=== PATIENT | female | born 1985 | race Two or more races ===

== ENCOUNTER 2024-07-06 08:41 | Emergency (ER) | payer OTHER, SELFPAY ==
[2024-07-06 08:54] VITALS: BP 131/94; PULSE 90; RESP 16; TEMP 36.7; O2SAT 98; BMI 32.5
--- NOTE | 2024-07-06 09:10 | EDNOTE_ITS ---
<Statement entered by Freida Tolliver MD - 07/06/24 16:22> As co-signing physician, I was present and available for consult prn. I concur with the plan and care as documented by the midlevel provider. 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 definitely poked her right index finger with a needle today Limitations: no limitations Related Data Home Medications ?Medication ?Instructions ?Recorded ?Confirmed ergocalciferol (vitamin D2) 1,250 1,250 mcg PO QWEEK 01/05/23 01/05/23 mcg (50,000 unit) capsule (Vitamin D2) multivitamin 1 tab PO QDAY 01/05/23 01/05/23 Previous Rx's ?Medication ?Instructions ?Recorded docusate sodium 100 mg capsule 100 mg PO BID #40 caps 01/06/23 (Colace) hydrocodone 5 mg-acetaminophen 325 1 tab PO Q6H PRN pain (scale score 01/06/23 mg tablet 7-10) #20 tabs ibuprofen 600 mg tablet 600 mg PO Q8H PRN pain (scale 01/06/23 score 4-6) #15 tabs emtricitabine 200 mg-tenofovir 1 tab PO QAM #28 tabs 07/06/24 disoproxil fumarate 300 mg tablet raltegravir 400 mg tablet 400 mg PO BID 28 days #56 tabs 07/06/24 Allergies Allergy/AdvReac Type Severity Reaction Status Date / Time No Known Allergies Allergy Verified 01/06/23 09:27 Review of Systems Review of Systems Systems Reviewed: All systems reviewed, normal except as documented Constitutional Constitutional: Reports system reviewed and no additional complaints, except as documented, Denies fever(s) and Denies headache(s) Eyes Eyes: Reports system reviewed and no additional complaints, except as documented and Denies blurry vision ENT Ears, Nose, Mouth, and Throat: Reports system reviewed and no additional complaints, except as documented, Denies headache(s), Denies nasal congestion and Denies nasal discharge Cardiovascular Cardiovascular: Reports system reviewed and no additional complaints, except as documented, Denies chest pain and Denies dyspnea Respiratory Respiratory: Reports system reviewed and no additional complaints, except as documented, Denies chest congestion, Denies cough and Denies dyspnea Gastrointestinal Gastrointestinal: Reports system reviewed and no additional complaints, except as documented and Denies abdominal pain Integumentary/Breasts Skin/Breast: Reports system reviewed and no additional complaints, except as documented, Denies rash and Reports wounds (Right index finger puncture wound) Neurologic Neurologic: Reports system reviewed and no additional complaints, except as documented, Reports as per HPI and Denies headache(s) Past Medical History Past Medical History NEUROLOGIC: Negative Neurological Disorders or Seizures CARDIAC: Negative Cardiac Disorders or Congestive Heart Failure RESPIRATORY: Negative Chronic Obstructive Pulmonary Disease (COPD) GASTROINTESTINAL: Positive Gastrointestinal Disorders, Gall Bladder Disease and Obesity; Negative Hepatitis GENITOURINARY: Negative Genitourinary Disorders or Renal Disease REPRODUCTIVE: Positive Previous Pregnancies; Negative Pelvic Inflammatory Disease MUSCULOSKELETAL: Negative Musculoskeletal Disorders ENDOCRINE: Negative Endocrine Disorders, Diabetes Mellitus Type 1 or Diabetes Mellitus Type 2 HEMATOLOGIC: Negative Blood Disorders OTHER HISTORY: Positive Anesthesia Reactions (nausea); Negative Autoimmune Disease, Blood Transfusions, Blood Transfusion Reaction, MRSA, Measles or Cancer Family History FAMILY HISTORY: Positive Family Surgery (MOTHER: HYSTERECTOMY); Negative Family Psychiatric Problems, Family Respiratory Disorders, Family Cardiac Disorders, Family Gastrointestinal Problems, Family Cancer or Family Anesthesia Reaction Surgical History SURGICAL: Positive Section Social History SMOKING STATUS: Never smoker SUBSTANCE USE: does not use ED Exam General Limitations: Present no limitations General appearance: Present alert and in no apparent distress Head Head exam: Present atraumatic Eye Eye exam: Present normal appearance, PERRL and EOMI ENT ENT exam: Present normal exam, normal oropharynx and mucous membranes moist Neck Neck exam: Present normal inspection, full ROM and trachea midline Chest Chest inspection: Present normal inspection and symmetric chest wall rise Respiratory Respiratory exam: Present normal lung sounds bilaterally Cardiovascular Cardiovascular exam: Present regular rate, normal rhythm and normal heart sounds Abdominal Exam Abdominal exam: Present soft and normal bowel sounds Extremities Exam Extremities exam: Present normal inspection and full ROM Back Exam Back exam: Present normal inspection and full ROM Neurological Exam Neurological exam: Present alert, oriented X3 and CN II-XII intact Psychiatric Psychiatric exam: Present normal affect and normal mood Skin Skin exam: Present warm, dry, intact and normal color Course Quality Measures none Orders Category Date Time Status CBC Stat Lab 07/06/24 09:46 Completed CMP [Comprehensive Metabolic Panel] Stat Lab 07/06/24 09:46 Completed HCG,Qualitative Serum Stat Lab 07/06/24 09:46 Completed HIV (1&2) Antibody Rapid Stat Lab 07/06/24 09:46 Completed Hepatitis B Surface Ab Stat Lab 07/06/24 09:46 Completed Hepatitis C Antibody Stat Lab 07/06/24 09:46 Completed Vital Signs Vital signs: Vital Signs Temperature 98.0 F 07/06/24 08:54 Pulse Rate 90 07/06/24 08:54 Respiratory Rate 16 07/06/24 08:54 Blood Pressure 131/94 H 07/06/24 08:54 Pulse Oximetry (%) 98 07/06/24 08:54 Oxygen Delivery Method Room Air 07/06/24 08:54 O2 saturation 98% on room air within normal MDM Patient data External records reviewed:: [facility] previous records Clinical information provided by:: patient Social determinants that could affect healthcare access:: none Patient has the following chronic illnesses:: None How is presenting disease/condition affected by chronic disease/condition?: no chronic disease Evaluation data The following diagnostics were reviewed and interpreted by me:: lab results Lab and/or radiology exams considered but not ordered:: Labs obtained Interpretation Summary: Reviewed by me Medications Medications considered but not ordered:: No meds Medication administrations:: No meds Consultations Consultation(s) initiated? (list below): No Diagnosis Differential Diagnosis ED Complaint MDM: Laceration, abrasion, work-related injury Most likely diagnosis given after review of the tests above:: Puncture wound work-related injury Admission Indicated Admission indicated?: not indicated Explain why admission is indicated or not indicated:: No criteria Admission Request Was there a request for admission?: No Disposition Plan Disposition Plan: Discharge Discharge Attestation Discharge Attestation: The patient and all family members were given an opportunity to ask questions and understood the discharge instructions. Discharge instructions specifically effects, indications for sooner follow up or return to the emergency department, and the expected course of current diagnosis. 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 with a needle today On exam I do not appreciate any wounds Patient reports tetanus up-to-date Lab work obtained Patient reports that she would like HIV prophylaxis patient given medication pros and cons were discussed spoke with the patient as well as the powerhouse mechanic helper stating that the source patient is to be drawn as well Patient discharged home in no distress to follow-up with primary care doctor in the next 24 to 48 hours and for any worsening symptoms to return to the ER immediately Differential Diagnosis Differential Diagnosis: Laceration, abrasion, work-related injury Medical Records Medical records reviewed: Yes I reviewed the patient's medical records. Lab Data Lab results reviewed: Yes I reviewed the patient's lab results. 07/06/24 09:46 07/06/24 09:46 Labs: Lab Results 07/06/24 Range/Units 09:46 WBC 8.8 (3.6-11.0) Thou/mm3 RBC 4.95 (4.00-5.20) Miln/mm3 Hgb 14.0 (12.0-16.0) g/dL Hct 41.1 (36.0-46.0) % MCV 83 (80-100) fL MCH 28.3 (25.0-35.0) pg MCHC 34.1 (31.0-37.0) g/dl RDW Std Deviation 37.2 (36.4-46.3) fL Plt Count 234 (140-440) Thou/mm3 Neut % (Auto) 61 (37-80) % Lymph % (Auto) 29 (10-50) % [place] % (Auto) 6 (0-12) % Eos % (Auto) 3 (0-10) % Baso % (Auto) 0 (0-2.5) % Neut # (Auto) 5.4 (1.8-7.7) Thou/mm3 Lymph # (Auto) 2.6 (1.0-4.8) Thou/mm3 [place] # (Auto) 0.5 (0.0-0.8) Thou/mm3 Eos # (Auto) 0.2 (0.0-0.5) Thou/mm3 Baso # (Auto) 0.0 (0.0-0.2) Thou/mm3 Immature Gran # (Auto) 0.03 H (0.00-0.00) Thou/mm3 Absolute Nucleated RBC 0.00 (0.00-0.00) Thou/mm3 Immature Gran % 0 (0-0) % Nucleated RBC % 0 (0) /100 WBC Sodium 137 (136-145) mMol/L Potassium 4.0 (3.4-5.1) mMol/L Chloride 105 (98-107) mMol/L Carbon Dioxide 24.5 (20.0-31.0) mMol/L Anion Gap 8 (7-16) BUN 11 (9-23) mg/dL Creatinine 0.8 (0.6-1.3) mg/dL Estim Creat Clear Calc 102.3 (>60) mL/min eGFR > 60 (60 - ) See Note BUN/Creatinine Ratio 14 (12-20) Ratio Glucose 90 (74-106) mg/dL Calculated Osmolality 273 L (275-295) Calcium 9.6 (8.3-10.6) mg/dL Corrected Calcium 9.6 (8.5-10.1) mg/dL Total Bilirubin 0.5 (0.3-1.2) mg/dL AST 21 (0-34) U/L ALT 27 (10-49) U/L Alkaline Phosphatase 86 (46-116) U/L Total Protein 8.2 (5.7-8.2) gm/dL Albumin 4.8 (3.5-5.0) gm/dL Globulin 3.4 (2.3-3.5) gm/dL Albumin/Globulin Ratio 1.4 (1.2-2.2) HCG, Qual Negative Hep Bs Antibody Reactive (Immune) (Immune) Hepatitis C Antibody Non Reactive (Non React) HIV 1&2 Antibody Rapid Non-Reactive Discharge Plan Plan Patient Disposition: HOME (Self Care) Disposition Comment: Stable Prescriptions/Referrals Prescriptions/Med Rec: New emtricitabine-tenofovir (TDF) 200-300 mg tablet 1 tab PO QAM Qty: 28 0RF raltegravir 400 mg tablet 400 mg PO BID 28 Days Qty: 56 0RF No Action multivitamin Tablet 1 tab PO QDAY ergocalciferol (vitamin D2) [Vitamin D2] 1,250 mcg (50,000 unit) Capsule 1,250 mcg PO QWEEK docusate sodium [Colace] 100 mg capsule 100 mg PO BID Qty: 40 0RF hydrocodone-acetaminophen 5-325 mg tablet 1 tab PO Q6H MDD 4 PRN (Reason: pain (scale score 7-10)) Qty: 20 0RF ibuprofen 600 mg tablet 600 mg PO Q8H PRN (Reason: pain (scale score 4-6)) Qty: 15 0RF Problem List Clinical Impression: Accidental needlestick injury with exposure to body fluid, Work related injury Patient/Caregiver Discharge Instructions Additional Instructions: Please follow up with Workmen's Compensation provider as discussed for worsening symptoms return immediately Print Language: Arabic Stand Alone Forms: [place] Award Info., Patient Portal Info Letter PA/[employer] SEEDER Supervising Physician PA/[employer] SEEDER Supervising Physician: Dr. tolliver
[2024-07-06 10:14] LABS: Basophils % (Auto) 0 % (0-2.5); Eosinophils # (Auto) 0.2 Thou/mm3 (0.0-0.5); Eosinophils % (Auto) 3 % (0-10); Hematocrit 41.1 % (36.0-46.0); Immature Granulocytes % (Auto) 0 % (0-0); Immature Granulocytes Auto 0.03 Thou/mm3 (0.00-0.00); Lymphocytes # (Auto) 2.6 Thou/mm3 (1.0-4.8); Lymphocytes % (Auto) 29 % (10-50); Mean Corpuscular HGB Conc 34.1 g/dl (31.0-37.0); Mean Corpuscular Hemoglobin 28.3 pg (25.0-35.0); Mean Corpuscular Volume 83 fL (80-100); Monocytes # (Auto) 0.5 Thou/mm3 (0.0-0.8); Monocytes % (Auto) 6 % (0-12); Neutrophils # (Auto) 5.4 Thou/mm3 (1.8-7.7); Neutrophils % (Auto) 61 % (37-80); Nucleated Red Blood Cell % 0 /100 WBC (0); Platelet Count 234 Thou/mm3 (140-440); RDW Standard Deviation 37.2 fL (36.4-46.3); Red Blood Count 4.95 Miln/mm3 (4.00-5.20); White Blood Count 8.8 Thou/mm3 (3.6-11.0)
[2024-07-06 10:32] LABS: HCG,Qualitative Serum Negative
[2024-07-06 10:35] LABS: Alanine Aminotransferase 27 U/L (10-49); Albumin, Serum 4.8 gm/dL (3.5-5.0); Albumin/Globulin Ratio 1.4 (1.2-2.2); Alkaline Phosphatase 86 U/L (46-116); Anion Gap 8 (7-16); Aspartate Amino Transferase 21 U/L (0-34); BUN/Creatinine Ratio 14 Ratio (12-20); Bilirubin,Total 0.5 mg/dL (0.3-1.2); Blood Urea Nitrogen 11 mg/dL (9-23); Calcium 9.6 mg/dL (8.3-10.6); Calcium (Corrected) 9.6 mg/dL (8.5-10.1); Carbon Dioxide 24.5 mMol/L (20.0-31.0); Chloride 105 mMol/L (98-107); Creatinine (Component) 0.8 mg/dL (0.6-1.3); Estimated Creatinine Clearance 102.3 mL/min (>60); Globulin 3.4 gm/dL (2.3-3.5); Glucose 90 mg/dL (74-106); Osmolality,Calculated 273 (275-295); Sodium 137 mMol/L (136-145); Total Protein 8.2 gm/dL (5.7-8.2); eGFR > 60 See Note
[2024-07-06 10:48] LABS: HIV (1&2) Antibody Rapid Non-Reactive
[2024-07-06 11:12] LABS: Hepatitis B Surface Ab Reactive (Immune) (Immune); Hepatitis C Antibody Non Reactive (Non React)
== END 2024-07-06 09:52 | disposition home or self-care (01) ==
LOC: SERX 09:28
PROVIDERS: Nurse Practitioner Primary Care; Emergency Provider Emergency Medicine; PCP Internal Medicine
DX: S61.230A Puncture wound without foreign body of right index finger without damage to nail, initial encounter (principal); W46.1XXA Contact with contaminated hypodermic needle, initial encounter; Y93.F9 Activity, other caregiving; Y92.239 Unspecified place in hospital as the place of occurrence of the external cause; Y99.0 Civilian activity done for income or pay; Z77.21 Contact with and (suspected) exposure to potentially hazardous body fluids
CPT/HCPCS: 36415; 80053; 84703; 85025; 86703; 86706; 86803; 99283

== ENCOUNTER → 2024-08-08 | Outpatient (CLI) | payer OTHER, SELFPAY ==
[2024-08-10 23:36] LABS: HCV RNA, PCR <15 NOT DETECTED IU/mL
[2024-08-11 06:38] LABS: HCV RNA, PCR Log IU <1.18 NOT DETECTED Log IU/mL
== END | disposition home or self-care (01) ==
LOC: COPL 08:55
PROVIDERS: PCP Internal Medicine; Referring Provider Family Medicine; Visit Provider Nurse Practitioner Family
DX: Z77.21 Contact with and (suspected) exposure to potentially hazardous body fluids (principal)
CPT/HCPCS: 36415; 87522

== ENCOUNTER → 2024-10-10 | Outpatient (CLI) | payer OTHER, SELFPAY ==
[2024-10-13 23:36] LABS: HCV RNA, PCR <15 NOT DETECTED IU/mL
[2024-10-14 06:38] LABS: HCV RNA, PCR Log IU <1.18 NOT DETECTED Log IU/mL
== END | disposition home or self-care (01) ==
PROVIDERS: PCP Internal Medicine; Referring Provider Family Medicine; Visit Provider Family Medicine
DX: Z77.21 Contact with and (suspected) exposure to potentially hazardous body fluids (principal); Z20.5 Contact with and (suspected) exposure to viral hepatitis
CPT/HCPCS: 36415; 87522

== ENCOUNTER → 2024-10-14 | Outpatient (CLI) | payer OTHER, SELFPAY ==
[2024-10-15 09:02] LABS: BVAG Candida Positive (Negative); Bacterial Vaginosis Markers Negative (Negative); Candida glabrata Negative (Negative); Candida krusei PCR Negative (Negative); Trichomonas Negative (Negative)
== END | disposition home or self-care (01) ==
PROVIDERS: Referring Provider Physician Assistant Medical; Visit Provider Physician Assistant Medical
DX: A59.01 Trichomonal vulvovaginitis (principal); B37.89 Other sites of candidiasis; N76.0 Acute vaginitis
CPT/HCPCS: 81514

== ENCOUNTER → 2024-12-12 | Outpatient (CLI) | payer OTHER, SELFPAY ==
[2024-12-14 13:51] LABS: HCV RNA, PCR <15 NOT DETECTED IU/mL
[2024-12-15 06:47] LABS: HCV RNA, PCR Log IU <1.18 NOT DETECTED Log IU/mL
== END | disposition home or self-care (01) ==
LOC: COPL 10:33
PROVIDERS: PCP Internal Medicine; Referring Provider Nurse Practitioner Family; Visit Provider Nurse Practitioner Family
DX: Z77.21 Contact with and (suspected) exposure to potentially hazardous body fluids (principal)
CPT/HCPCS: 36415; 87522

== ENCOUNTER → 2025-03-23 | Outpatient (CLI) | payer OTHER, SELFPAY ==
[2025-03-23 08:32] LABS: Basophils # (Auto) 0.0 Thou/mm3 (0.0-0.2); Basophils % (Auto) 0 % (0-2.5); Eosinophils # (Auto) 0.1 Thou/mm3 (0.0-0.5); Eosinophils % (Auto) 2 % (0-10); Hematocrit 41.8 % (36.0-46.0); Hemoglobin 13.6 g/dL (12.0-16.0); Immature Granulocytes Auto 0.03 Thou/mm3 (0.00-0.00); Lymphocytes # (Auto) 2.7 Thou/mm3 (1.0-4.8); Lymphocytes % (Auto) 36 % (10-50); Mean Corpuscular HGB Conc 32.5 g/dl (31.0-37.0); Mean Corpuscular Hemoglobin 27.0 pg (25.0-35.0); Mean Corpuscular Volume 83 fL (80-100); Monocytes # (Auto) 0.5 Thou/mm3 (0.0-0.8); Monocytes % (Auto) 7 % (0-12); Neutrophils # (Auto) 4.2 Thou/mm3 (1.8-7.7); Neutrophils % (Auto) 56 % (37-80); Nucleated Red Blood Cell # 0.00 Thou/mm3 (0.00-0.00); Nucleated Red Blood Cell % 0 /100 WBC (0); Platelet Count 186 Thou/mm3 (140-440); RDW Standard Deviation 39.8 fL (36.4-46.3); Red Blood Count 5.03 Miln/mm3 (4.00-5.20); White Blood Count 7.6 Thou/mm3 (3.6-11.0)
[2025-03-23 08:41] LABS: Glucose Estimated Average 100 mg/dL (80-131); Hemoglobin A1C 5.1 % Hgb (4.8-6.0)
[2025-03-23 08:45] LABS: HCG,Qualitative Serum Negative
[2025-03-23 08:50] LABS: Alanine Aminotransferase 27 U/L (10-49); Albumin, Serum 4.4 gm/dL (3.5-5.0); Albumin/Globulin Ratio 1.6 (1.2-2.2); Alkaline Phosphatase 83 U/L (46-116); Anion Gap 10 (7-16); Aspartate Amino Transferase 20 U/L (0-34); BUN/Creatinine Ratio 7 Ratio (12-20); Bilirubin,Total 0.3 mg/dL (0.3-1.2); Blood Urea Nitrogen 6 mg/dL (9-23); Calcium 9.3 mg/dL (8.3-10.6); Calcium (Corrected) 9.3 mg/dL (8.5-10.1); Carbon Dioxide 22.3 mMol/L (20.0-31.0); Cardiac Risk Estimate 3.3 RATIO (3.7-5.6); Chloride 109 mMol/L (98-107); Cholesterol 163 mg/dL (132-200); Creatinine (Component) 0.9 mg/dL (0.6-1.3); Globulin 2.8 gm/dL (2.3-3.5); Glucose 97 mg/dL (74-106); HDL Cholesterol 49 mg/dL (40-60); LDL Cholesterol,Calculated 96 mg/dL (0-130); Magnesium 1.9 mg/dL (1.6-2.6); Osmolality,Calculated 278 (275-295); Phosphorous 3.5 mg/dL (2.4-5.1); Potassium 4.6 mMol/L (3.4-5.1); Sodium 141 mMol/L (136-145); Thyroid Stimulating Hormone 1.97 uIU/mL (0.55-4.78); Total Protein 7.2 gm/dL (5.7-8.2); Triglycerides 92 mg/dL (30-150); Uric Acid 4.5 mg/dL (3.1-7.8); eGFR > 60 See Note
[2025-03-23 08:53] LABS: Ferritin 15 ng/mL (7.3-270.7)
[2025-03-23 08:54] LABS: Vitamin B12 284 pg/mL (211-911); Vitamin D 25 Hydroxy Total 26.4 ng/mL (7.3-40.2)
== END | disposition home or self-care (01) ==
LOC: COPL 06:52
PROVIDERS: PCP Internal Medicine; Referring Provider Internal Medicine; Visit Provider Internal Medicine
DX: Z00.00 Encounter for general adult medical examination without abnormal findings (principal); R42 Dizziness and giddiness; R53.82 Chronic fatigue, unspecified
CPT/HCPCS: 36415; 80053; 80061; 82306; 82607; 82728; 83036; 83735; 84100; 84443; 84550; 84703; 85025